=== PATIENT | male | born 1950 | race Caucasian/White ===

== ENCOUNTER 2019-11-04 15:56 | Inpatient (IN) | payer OTHER ==
[~2019-11-04] VITALS: Ht 182.9 cm; Wt 91.5 kg
[2019-11-04 17:16] LABS: Basophils # (auto) 0.1 10 ^3/uL (0-0.2); Basophils % (auto) 0.7 % (0.0-2.0); Eosinophils # (auto) 0.1 10 ^3/uL (0-0.8); Eosinophils % (auto) 0.6 % (0.0-7.0); Hematocrit 40.9 % (41.0-53.0); Hemoglobin 13.7 g/dL (13.5-17.5); Lymphocytes % (auto) 12.1 % (10.0-50.0); Mean Corpuscular Hemoglobin 27.6 pg (28.0-32.0); Mean Corpuscular Hgb Conc. 33.5 g/dL (32.0-36.0); Mean Corpuscular Volume 82.4 fL (80.0-100.0); Monocytes # (auto) 0.6 10 ^3/uL (0-1.3); Monocytes % (auto) 7.6 % (0.0-12.0); Neutrophils # (auto) 6.4 10 ^3/uL (1.6-8.6); Platelet Count (auto) 225 10^3/uL (140-450); Red Blood Cells 4.97 10^6/uL (4.5-5.90); Red Cell Distribution Width 13.6 % (11.8-14.3); White Blood Cell 8.2 10^3/uL (4.4-10.8)
[2019-11-04 17:33] LABS: Albumin 2.8 g/dL (3.4-5.0); Anion Gap 9 (5-15); Carbon Dioxide 23 mmol/L (21-32); Chloride 104 mmol/L (98-107); Glucose 103 mg/dL (74-106); Potassium 4.4 mmol/L (3.5-5.1); Sodium 136 mmol/L (136-145)
[2019-11-04 17:39] LABS: Alanine Aminotransferase 38 U/L (16-61); Alkaline Phosphatase 91 U/L (45-117); Aspartate Aminotransferase 23 U/L (15-37); BUN/Creatinine Ratio 31.5; Bilirubin, Total 0.5 mg/dL (0.2-1.0); GFR African American 29 mL/min; GFR Non-African American 24 mL/min; Total Protein 7.5 g/dL (6.4-8.2)
[2019-11-04 19:31] LABS: Blood Urea Nitrogen 88 mg/dL (7-18)
[2019-11-04 19:32] LABS: Magnesium 4.1 mg/dL (1.6-2.6)
[2019-11-05] MEDS ORDERED: SOD CHL 0.45% 1,000 ML IV ONE (01:15)
[2019-11-05] MEDS ORDERED: hydrALAZINE HCL 20 MG/ML VL IV PRN (01:15)
[2019-11-05] MEDS ORDERED: MORPHINE SULF INJ 2 MG/ML SYRINGE 1ML IV PRN (01:15)
[2019-11-05] MEDS ORDERED: NITROGLYCERIN 0.4 MG SL TAB SL PRN (01:15)
[2019-11-05 03:31] LABS: Urine Bacteria FEW /hpf (None Seen); Urine Blood Negative /uL (Negative); Urine Hyaline Cast MANY /lpf (0 - 2); Urine Mucus FEW (None Seen); Urine Specific Gravity 1.018 (1.001-1.035); Urine WBC 12 /hpf (0 - 3)
[2019-11-05] MEDS: hydrALAZINE HCL 25 MG TAB PO SCH ×3 (05:50→22:03)
[2019-11-05 07:04] LABS: INR 1.01 (0.9-1.15)
[2019-11-05 07:05] LABS: Basophils # (auto) 0 10 ^3/uL (0-0.2); Basophils % (auto) 0.6 % (0.0-2.0); Eosinophils # (auto) 0.1 10 ^3/uL (0-0.8); Eosinophils % (auto) 1.1 % (0.0-7.0); Hematocrit 39.6 % (41.0-53.0); Hemoglobin 13.5 g/dL (13.5-17.5); Lymphocytes % (auto) 14.3 % (10.0-50.0); Mean Corpuscular Hemoglobin 28.2 pg (28.0-32.0); Mean Corpuscular Volume 82.8 fL (80.0-100.0); Monocytes # (auto) 0.6 10 ^3/uL (0-1.3); Monocytes % (auto) 8.3 % (0.0-12.0); Neutrophils # (auto) 5.1 10 ^3/uL (1.6-8.6); Neutrophils % (auto) 75.7 % (37.0-80.0); Nucleated Red Blood Cells % 0.1 %; Platelet Count (auto) 201 10^3/uL (140-450); Red Blood Cells 4.78 10^6/uL (4.5-5.90); White Blood Cell 6.8 10^3/uL (4.4-10.8)
[2019-11-05 07:30] LABS: Potassium 4.6 mmol/L (3.5-5.1)
[2019-11-05 07:36] LABS: Albumin 2.5 g/dL (3.4-5.0); BUN/Creatinine Ratio 32.2; Bilirubin, Total 0.5 mg/dL (0.2-1.0); Total Protein 6.9 g/dL (6.4-8.2)
--- NOTE | 2019-11-05 08:00 | NUR ---
MS admit from ER RODOLFO LANCASTER admitted to MS after SBAR received. Patient oriented to SHELLEY HELLER RN primary RN, unit, room, bed, and unit policies regarding patient care and visiting hours. Patient weighed by bedscale and encouraged to call if they need something. All questions and concerns addressed, patient verbalized understanding.
[2019-11-05 09:00] VITALS: BP 158/71
[2019-11-05] MEDS ORDERED: BUMETANIDE 1 MG TAB PO SCH (10:00)
[2019-11-05] MEDS ORDERED: PANTOPRAZOLE 40 MG/10 ML VIAL INJ IV ONE (10:00)
[2019-11-05] MEDS ORDERED: HYDR50TA15 PO (10:09)
[2019-11-05] MEDS ORDERED: ATOR20TA50 PO (10:09)
[2019-11-05] MEDS ORDERED: LOSA-39 PO (10:09)
[2019-11-05] MEDS ORDERED: METO25TA93 PO (10:09)
[2019-11-05] MEDS ORDERED: NIFE1TAB30 PO (10:09)
[2019-11-05] MEDS: LOSARTAN POTASSIUM 50 MG TAB PO SCH (10:12)
[2019-11-05] MEDS: METOPROLOL TARTRATE 25 MG TAB PO SCH ×2 (10:13→22:04)
[2019-11-05] MEDS: NIFEdipine 10 MG CAP PO SCH ×2 (10:14→22:06)
[2019-11-05 10:50] VITALS: BP 158/71
[2019-11-05 13:00] VITALS: BP 120/61
[2019-11-05] MEDS: BUMETANIDE 1 MG TAB PO SCH ×2 (13:15→18:04)
[2019-11-05] MEDS: predniSONE 20 MG TAB PO SCH ×2 (13:17→22:02)
[2019-11-05 15:00] LABS: Albumin 2.4 g/dL (3.4-5.0); Calcium 7.8 mg/dL (8.5-10.1)
[2019-11-05 15:03] LABS: BUN/Creatinine Ratio 31.5; Bilirubin, Total 0.6 mg/dL (0.2-1.0); Total Protein 6.8 g/dL (6.4-8.2)
[2019-11-05 15:22] LABS: Protein, Urine 969.6 mg/dL (0.0-11.9)
[2019-11-05 17:00] VITALS: BP 137/75
--- NOTE | 2019-11-05 19:23 | NUR ---
Closing Shift Note Patient resting in bed. No distress noted. Patient resting in bed. Will endorse care to the shift foreman RN.
[2019-11-05 22:00] VITALS: BP 139/68
[2019-11-06 05:00] VITALS: BP 134/66
[2019-11-06] MEDS: hydrALAZINE HCL 25 MG TAB PO SCH ×3 (06:07→22:16)
[2019-11-06] MEDS: BUMETANIDE 1 MG TAB PO SCH ×2 (06:08→13:15)
--- NOTE | 2019-11-06 07:25 | NUR ---
End of Shift Note Endorsed care to dayshift RN. No s/s of distress or SOB, patient responsive to name and touch, no complaints at this time.
--- NOTE | 2019-11-06 07:30 | NUR ---
Opening Shift Note Assuming care of patient at this time. Patient is awake and alert. Patient denies pain. Patient shows no signs or symptoms of distress or shortness of breath. Bed is locked and lowered with side rails up x2. Instructed patient on the plan of care for today and to call for assistance as needed. Call light within reach.
[2019-11-06 09:01] VITALS: BP 148/69
[2019-11-06 09:20] LABS: Basophils # (auto) 0 10 ^3/uL (0-0.2); Basophils % (auto) 0.1 % (0.0-2.0); Eosinophils # (auto) 0 10 ^3/uL (0-0.8); Hematocrit 39.7 % (41.0-53.0); Hemoglobin 13.3 g/dL (13.5-17.5); Lymphocytes # (auto) 0.4 10 ^3/uL (0.4-5.4); Lymphocytes % (auto) 3.6 % (10.0-50.0); Mean Corpuscular Hemoglobin 27.7 pg (28.0-32.0); Mean Corpuscular Hgb Conc. 33.5 g/dL (32.0-36.0); Mean Corpuscular Volume 82.6 fL (80.0-100.0); Monocytes # (auto) 0.2 10 ^3/uL (0-1.3); Neutrophils # (auto) 10.3 10 ^3/uL (1.6-8.6); Neutrophils % (auto) 94.3 % (37.0-80.0); Platelet Count (auto) 243 10^3/uL (140-450); Red Blood Cells 4.81 10^6/uL (4.5-5.90); Red Cell Distribution Width 13.6 % (11.8-14.3)
[2019-11-06] MEDS: NIFEdipine 10 MG CAP PO SCH ×2 (09:26→22:15)
[2019-11-06] MEDS: predniSONE 20 MG TAB PO SCH ×2 (09:27→22:18)
[2019-11-06] MEDS: LOSARTAN POTASSIUM 50 MG TAB PO SCH (09:27)
[2019-11-06 09:41] LABS: Albumin 2.6 g/dL (3.4-5.0); Calcium 7.9 mg/dL (8.5-10.1); Potassium 4.9 mmol/L (3.5-5.1)
[2019-11-06 09:44] LABS: BUN/Creatinine Ratio 31.5; Bilirubin, Total 0.4 mg/dL (0.2-1.0); Total Protein 7.1 g/dL (6.4-8.2)
[2019-11-06] MEDS: METOPROLOL TARTRATE 25 MG TAB PO SCH ×2 (09:47→22:16)
--- NOTE | 2019-11-06 10:53 | NUR ---
Call to Dr. Woods Informed Dr. Woods of critical BUN results and elevated creatinine. Dr. Woods verbalized understanding. No new orders given at this time. Awaiting nephro recommendations.
[2019-11-06 13:00] VITALS: BP 116/55
[2019-11-06] MEDS: SODIUM CHLORIDE 0.9% 1,000 ML IV SCH ×2 (13:52→23:31)
--- NOTE | 2019-11-06 16:46 | NUR ---
Report given Report given to JAMES Eduardo. Patient currently in bed. Will endorse care to JAMES Eduardo.
--- NOTE | 2019-11-06 16:50 | NUR ---
Received patient from Rosey RAMIREZ. Patient awake, alert, oriented x 4 and verbally responsive. No respiratory distress noted. Skin is warm and dry to touch. Denied any pain at this time. Call light placed in reach, will continue to monitor.
[2019-11-06 17:06] VITALS: BP 135/68
--- NOTE | 2019-11-06 19:40 | NUR ---
RECEIVED PATIENT FROM DAY SHIFT RN. PATIENT RESTING IN BED. NO S/S OF DISTRESS NOTED. DENIED PAIN AT THIS TIME. POC INSTRUCTED AND ENCOURAGED PATIENT TO CALL FOR QUALITY ASSURANCE DIRECTOR IF NEEDED. BED IN LOWEST POSITION WITH SIDE RAILS UP X 2. CALL CROOKS WITHIN REACH. ALARM ON. CONTINUE TO MONITOR FOR CHANGES Q1H AND PRN.
--- NOTE | 2019-11-06 21:05 | NUR ---
2ND IV insertion ON LFA IV access obtained, via clean sterile technique by inserting [22] gauge catheter at [LFA] after [1] attempt(s). IV secured properly. No trauma to site. Patient tolerated well. NOTE: []
[2019-11-06 22:00] VITALS: BP 155/78
--- NOTE | 2019-11-07 01:27 | NUR ---
PATIENT SLEEPING. NO S/S OF DISTRESS NOTED. CONTINUE TO MONITOR.
[2019-11-07 05:00] VITALS: BP 133/72
--- NOTE | 2019-11-07 05:40 | NUR ---
PATIENT'S FAMILY CALLED. PASSWORD VERIFIED. UPDATED ON PATIENT'S CURRENT MEDICATIONS BUT TEST RESULTS, THEN PATIENT'S FAMILY CALLED PATIENT, PATIENT ANSWERED PHONE. CONTINUE TO MONITOR.
[2019-11-07] MEDS: hydrALAZINE HCL 25 MG TAB PO SCH ×3 (05:55→22:06)
[2019-11-07 07:45] LABS: Albumin 2.4 g/dL (3.4-5.0); BUN/Creatinine Ratio 28.6; Calcium 7.3 mg/dL (8.5-10.1); Potassium 5.2 mmol/L (3.5-5.1)
[2019-11-07 07:48] LABS: Bilirubin, Total 0.3 mg/dL (0.2-1.0); Total Protein 6.3 g/dL (6.4-8.2)
[2019-11-07 08:47] VITALS: BP 141/71
[2019-11-07] MEDS: SODIUM CHLORIDE 0.9% 1,000 ML IV SCH (10:44)
[2019-11-07] MEDS: BUMETANIDE 1 MG TAB PO SCH (10:44)
[2019-11-07] MEDS: predniSONE 20 MG TAB PO SCH ×2 (10:44→22:08)
[2019-11-07] MEDS: NIFEdipine 10 MG CAP PO SCH ×2 (10:45→22:06)
[2019-11-07] MEDS: METOPROLOL TARTRATE 25 MG TAB PO SCH ×2 (10:45→22:07)
--- NOTE | 2019-11-07 11:00 | NUR ---
Called and notified Dr. Woods of patients critical BUN 113. No orders received
--- NOTE | 2019-11-07 11:03 | NUR ---
Called and left message for Dr. Bernard to notify nephrology of patients critical BUN, awaiting call back
--- NOTE | 2019-11-07 11:45 | NUR ---
Dr. Woods at bedside to discuss plan of care with patient
[2019-11-07 12:57] VITALS: BP 134/71
--- NOTE | 2019-11-07 14:20 | NUR ---
DOLLY PUSHER DR. GRAMAJO AT BEDSIDE TO DISCUSS PLAN OF CARE WITH PATIENT. NEW ORDERS PLACED BY PHYSICIAN WILL CARRY OUT
[2019-11-07] MEDS: SODIUM BICARBONATE 50ML VIAL 50 ML in SOD CHL 0.45% 1,000 ML IV SCH (15:39)
[2019-11-07 16:34] VITALS: BP 129/70
[2019-11-07] MEDS: BUMETANIDE 2.5mg/10ml (0.25 mg/ml) INJ IV SCH (18:03)
--- NOTE | 2019-11-07 19:20 | NUR ---
Opening Shift Note Assumed care of patient, awake and alert. No S/S of distress/SOB or pain. Safety measures in place bed in lowest position, side rails up x2, and call light within reach. Instructed on POC and to call for assist PRN, will continue to monitor for changes Q1hr and PRN.
[2019-11-07 21:00] VITALS: BP 145/79
[2019-11-08] MEDS: SODIUM BICARBONATE 50ML VIAL 50 ML in SOD CHL 0.45% 1,000 ML IV SCH ×2 (03:16→12:40)
[2019-11-08 05:00] VITALS: BP 140/71
[2019-11-08 05:47] LABS: Basophils # (auto) 0 10 ^3/uL (0-0.2); Basophils % (auto) 0.1 % (0.0-2.0); Eosinophils # (auto) 0 10 ^3/uL (0-0.8); Hematocrit 32.9 % (41.0-53.0); Hemoglobin 11.3 g/dL (13.5-17.5); Lymphocytes # (auto) 0.4 10 ^3/uL (0.4-5.4); Lymphocytes % (auto) 3.6 % (10.0-50.0); Mean Corpuscular Hemoglobin 28.1 pg (28.0-32.0); Mean Corpuscular Hgb Conc. 34.2 g/dL (32.0-36.0); Mean Corpuscular Volume 82.2 fL (80.0-100.0); Monocytes # (auto) 0.2 10 ^3/uL (0-1.3); Monocytes % (auto) 1.8 % (0.0-12.0); Neutrophils # (auto) 9.8 10 ^3/uL (1.6-8.6); Neutrophils % (auto) 94.5 % (37.0-80.0); Nucleated Red Blood Cells % 0.1 %; Platelet Count (auto) 193 10^3/uL (140-450); Red Blood Cells 4.01 10^6/uL (4.5-5.90); Red Cell Distribution Width 13.9 % (11.8-14.3); White Blood Cell 10.3 10^3/uL (4.4-10.8)
[2019-11-08] MEDS: BUMETANIDE 2.5mg/10ml (0.25 mg/ml) INJ IV SCH ×2 (05:59→17:53)
[2019-11-08] MEDS: hydrALAZINE HCL 25 MG TAB PO SCH ×3 (05:59→22:18)
[2019-11-08 06:04] LABS: Potassium 5.3 mmol/L (3.5-5.1)
[2019-11-08 06:19] LABS: Albumin 2.2 g/dL (3.4-5.0); BUN/Creatinine Ratio 32.1; Bilirubin, Total 0.2 mg/dL (0.2-1.0); Calcium 6.7 mg/dL (8.5-10.1); Total Protein 5.6 g/dL (6.4-8.2)
--- NOTE | 2019-11-08 06:39 | NUR ---
Chemistry called with a critical BUN 135, contacted Dr. Treviño with [facility]. No new orders. Will continue to monitor.
[2019-11-08 09:00] VITALS: BP 138/62
[2019-11-08] MEDS: predniSONE 20 MG TAB PO SCH ×2 (09:45→22:17)
[2019-11-08] MEDS: METOPROLOL TARTRATE 25 MG TAB PO SCH ×2 (09:45→22:18)
[2019-11-08] MEDS: NIFEdipine 10 MG CAP PO SCH (09:45)
[2019-11-08] MEDS ORDERED: NIFEdipine 10 MG CAP PO SCH (11:30)
--- NOTE | 2019-11-08 11:51 | NUR ---
Est energy needs kcal (20-23 kcal/kg BW 99.4kg) Est protein needs 59-69g (0.6-0.7g/kg BW 99.4kg r/t LIGIA no HD) will reassess prn Consider Renal Specific diet 70g protein until LIGIA improves or HD initiated Addendum: 11/08/19 at [address] Amended: Links added.
[2019-11-08] MEDS: CALCIUM ACETATE 667 MG CAP PO SCH ×2 (12:41→17:54)
[2019-11-08 13:00] VITALS: BP 151/61
[2019-11-08] MEDS: SODIUM ZIRCONIUM CYCL 10 GM PAK PO SCH ×2 (13:49→20:33)
[2019-11-08 17:00] VITALS: BP 141/69
[2019-11-08 21:00] VITALS: BP 142/74
[2019-11-09] MEDS: SODIUM BICARBONATE 50ML VIAL 50 ML in SOD CHL 0.45% 1,000 ML IV SCH (02:12)
[2019-11-09 04:30] VITALS: BP 157/91
[2019-11-09] MEDS: hydrALAZINE HCL 25 MG TAB PO SCH ×3 (05:00→22:14)
--- NOTE | 2019-11-09 05:01 | NUR ---
HYDRALAZINE HELD PER MD ORDERS TO HOLD BEFORE DIALYSIS MWF.
[2019-11-09] MEDS: SODIUM ZIRCONIUM CYCL 10 GM PAK PO SCH ×3 (06:00→22:00)
[2019-11-09] MEDS: BUMETANIDE 2.5mg/10ml (0.25 mg/ml) INJ IV SCH ×3 (06:08→17:59)
--- NOTE | 2019-11-09 06:34 | NUR ---
DAUGHTER MANAN CALLED FOR PATIENT; TRANSFERRED CALL TO PATIENT ROOM AFTER PASSWORD CONFIRMED.
[2019-11-09 06:40] LABS: Basophils # (auto) 0 10 ^3/uL (0-0.2); Eosinophils # (auto) 0 10 ^3/uL (0-0.8); Hemoglobin 11.3 g/dL (13.5-17.5); Lymphocytes # (auto) 0.6 10 ^3/uL (0.4-5.4); Lymphocytes % (auto) 6.5 % (10.0-50.0); Mean Corpuscular Hgb Conc. 34.2 g/dL (32.0-36.0); Mean Corpuscular Volume 81.7 fL (80.0-100.0); Monocytes # (auto) 0.5 10 ^3/uL (0-1.3); Monocytes % (auto) 5.9 % (0.0-12.0); Neutrophils % (auto) 87.6 % (37.0-80.0); Nucleated Red Blood Cells % 0.2 %; Platelet Count (auto) 200 10^3/uL (140-450); Red Blood Cells 4.04 10^6/uL (4.5-5.90); White Blood Cell 9.1 10^3/uL (4.4-10.8)
--- NOTE | 2019-11-09 06:48 | NUR ---
SPOKE TO RADIOLOGY JHON. JHON STATED PATIENT CANNOT BE SEEN FOR TUNNEL CATH PLACEMENT UNTIL DOCTOR ANNA HAS SEEN PATIENT AND PLACES ORDER.
[2019-11-09 06:55] LABS: Magnesium 3.7 mg/dL (1.6-2.6); Potassium 4.4 mmol/L (3.5-5.1)
[2019-11-09] MEDS ORDERED: SODIUM CHL 0.9% 1000 ML BAG XX ONE (07:00)
--- NOTE | 2019-11-09 07:30 | NUR ---
Opening Shift Note Assumed care of patient, who is alert and oriented x4. Respirations are even and unlabored. No S/S of distress/SOB or pain. Bed is low, locked with 2x side rails up. Call light is within reach. Instructed on POC and to call for assist PRN, will continue to monitor for changes Q1hr and PRN.
[2019-11-09] MEDS: CALCIUM ACETATE 667 MG CAP PO SCH ×4 (08:00→17:18)
[2019-11-09 08:50] LABS: INR 1.05 (0.9-1.15)
[2019-11-09 09:16] VITALS: BP 149/74
[2019-11-09] MEDS: METOPROLOL TARTRATE 25 MG TAB PO SCH (10:00)
[2019-11-09] MEDS ORDERED: fentaNYL CITRATE 100 MCG/2 ML VL ONE (10:40)
[2019-11-09] MEDS ORDERED: LIDOCAINE 2%HCL (LOCAL ANESTH.) INJ 20ML MDV ONE ×2 (10:40→11:00)
[2019-11-09] MEDS ORDERED: MIDAZOLAM HCL 1MG/1ML-2 ML VIAL ONE (10:40)
[2019-11-09] MEDS ORDERED: HEPARIN SODIUM (PORCINE) 5000 UNITS/ML 1ML VIAL ONE (10:41)
--- NOTE | 2019-11-09 10:42 | NUR ---
Patient off unit Patient taken to circus laborer for insertion of Tunneled IJ catheter for dialysis.
[2019-11-09] MEDS ORDERED: NIFEdipine 10 MG CAP PO SCH (11:30)
[2019-11-09 12:43] LABS: Hepatitis A Ab IgM Negative; Hepatitis B Core IgM Negative; Hepatitis B Surface Antigen Negative (Negative); Hepatitis C Antibody Negative (Negative)
--- NOTE | 2019-11-09 12:45 | NUR ---
Patient back on unit Patient alert and oriented x4. No s/s of distress noted or stated. Patient has a tunneled IJ catheter to right upper chest. Dressing is clean and dry. Per prosthetic lab technician okay to use access site for dialysis today. Will relay message to dialysis nurse. Bed is low, locked with 2x side rails up. Call light is within reach. Will continue to monitor.
--- NOTE | 2019-11-09 15:59 | NUR ---
1600 11/09/19 Faxed to [employer] the following: face sheet, current progress notes, and labs.
--- NOTE | 2019-11-09 16:50 | NUR ---
Dialysis output 3L out
[2019-11-09 17:01] VITALS: BP 170/82
[2019-11-09] MEDS: B-COMPLEX W/ C & FOLIC ACID(NEPHROVITE TAB) PO SCH (17:04)
[2019-11-09] MEDS: predniSONE 20 MG TAB PO SCH ×2 (17:04→22:14)
--- NOTE | 2019-11-09 18:15 | NUR ---
Paged Dr. Garza Waiting for call back.
--- NOTE | 2019-11-09 18:35 | NUR ---
Received call back Spoke with Dr. Garza regarding patients fluctuations in blood pressure. Patient was c/o dizziness and is expressing concerns regarding drastic change in blood pressure. 1704: BP: 170/82 HR:53 1750: BP:111/55 HR:70 RECHECK:1755 105/50 HR:81 1825:146/68 HR 75. New orders received to set parameters for blood pressure medications. Per MD Garza he will come and speak with patient tomorrow regarding blood pressure.
--- NOTE | 2019-11-09 19:10 | NUR ---
OPENING NOTE- NOC SHIFT PATIENT IS ALERT AND ORIENTED X4, PATIENT IS SITTING UP IN BED, BED IS LOCKED AT LOWEST POSITION, BED RAILS UP X2 AND HEAD OF BED IS UP >30 DEGREES. DISCUSSED POC WITH PATIENT AND INSTRUCTED PATIENT TO CALL PRN; PATIENT VERBALIZED UNDERSTANDING. WILL CONTINUE TO MONITOR Q1H AND PRN. BEDSIDE TABLE WITHIN REACH, CALL LIGHT WITHIN REACH.
[2019-11-09 22:00] VITALS: BP 140/71
[2019-11-09] MEDS ORDERED: METOPROLOL TARTRATE 25 MG TAB PO SCH (22:00)
[2019-11-10 05:00] VITALS: BP 148/72
[2019-11-10] MEDS: SODIUM ZIRCONIUM CYCL 10 GM PAK PO SCH (06:00)
[2019-11-10 06:42] LABS: Basophils # (auto) 0 10 ^3/uL (0-0.2); Eosinophils # (auto) 0 10 ^3/uL (0-0.8); Hematocrit 36.3 % (41.0-53.0); Hemoglobin 12.3 g/dL (13.5-17.5); Lymphocytes # (auto) 0.3 10 ^3/uL (0.4-5.4); Lymphocytes % (auto) 4.1 % (10.0-50.0); Mean Corpuscular Hemoglobin 27.5 pg (28.0-32.0); Mean Corpuscular Hgb Conc. 33.8 g/dL (32.0-36.0); Mean Corpuscular Volume 81.3 fL (80.0-100.0); Monocytes # (auto) 0.2 10 ^3/uL (0-1.3); Monocytes % (auto) 3.3 % (0.0-12.0); Neutrophils # (auto) 6.7 10 ^3/uL (1.6-8.6); Neutrophils % (auto) 92.6 % (37.0-80.0); Nucleated Red Blood Cells % 0.1 %; Platelet Count (auto) 191 10^3/uL (140-450); Red Blood Cells 4.46 10^6/uL (4.5-5.90); Red Cell Distribution Width 13.8 % (11.8-14.3); White Blood Cell 7.2 10^3/uL (4.4-10.8)
[2019-11-10] MEDS: BUMETANIDE 2.5mg/10ml (0.25 mg/ml) INJ IV SCH (06:48)
[2019-11-10] MEDS: hydrALAZINE HCL 25 MG TAB PO SCH ×3 (06:49→22:50)
[2019-11-10 07:04] LABS: Potassium 4.3 mmol/L (3.5-5.1)
[2019-11-10 07:08] LABS: BUN/Creatinine Ratio 29.7; Calcium 7.6 mg/dL (8.5-10.1); Magnesium 3.1 mg/dL (1.6-2.6)
[2019-11-10] MEDS: CALCIUM ACETATE 667 MG CAP PO SCH ×3 (07:59→17:41)
[2019-11-10] MEDS ORDERED: CALC667C5 PO (08:12)
[2019-11-10] MEDS ORDERED: PRED20TA2 PO (08:12)
[2019-11-10] MEDS ORDERED: PANT40TA2 PO (08:12)
[2019-11-10] MEDS ORDERED: NEPVITT PO (08:12)
[2019-11-10 08:46] VITALS: BP 159/79
--- NOTE | 2019-11-10 09:18 | NUR ---
Dr. Garza rounding Dr. Garza at bedside updating patient on POC. Will continue to monitor.
--- NOTE | 2019-11-10 09:25 | NUR ---
Discharge Spoke with Dr. Garza regarding this patient's discharge order. This nurse informed MD that [facility] will be setting patient up with dialysis/chair time. Per Greg this nurse is to hold discharge until he makes sure that patient is set up with dialysis chair time. Will continue to monitor.
[2019-11-10] MEDS: predniSONE 20 MG TAB PO SCH ×2 (09:47→22:51)
[2019-11-10] MEDS: NIFEdipine ER 30 MG TAB PO SCH (09:48)
[2019-11-10] MEDS: B-COMPLEX W/ C & FOLIC ACID(NEPHROVITE TAB) PO SCH (09:48)
[2019-11-10] MEDS ORDERED: NIFEdipine 10 MG CAP PO SCH (10:00)
[2019-11-10] MEDS: BUMETANIDE 1 MG TAB PO SCH (10:07)
[2019-11-10 12:52] VITALS: BP 150/75
--- NOTE | 2019-11-10 17:10 | NUR ---
Paging Dr. Garza Paging Dr. Garza regarding patient's chair time/discharge.
[2019-11-10 17:16] VITALS: BP 160/79
[2019-11-10 17:35] VITALS: BP 160/75
[2019-11-10] MEDS ORDERED: FUROSEMIDE 20 MG TAB PO ONE (18:00)
--- NOTE | 2019-11-10 18:27 | NUR ---
Received call back Spoke with Dr. Garza regarding patient's chair time. This nurse informed MD that [facility] scheduled patient's dialysis for first dialysis is at 2:30pm. MD is also aware of increasing blood pressure (see vital signs). New orders for Lasix placed and carried out. Per Dr. Garza patient is to have dialysis tomorrow morning and can be discharged after. Will continue to monitor.
--- NOTE | 2019-11-10 18:37 | NUR ---
Chair Time Spoke with Sumi from [facility] and she stated that patient will be doing dialysis with [facility] in [place]. Days: // Patient's first dialysis is this 11/12/19 at 2:30pm for initial evaluation. [phone]
--- NOTE | 2019-11-10 19:05 | NUR ---
OPENIN NOTE- NOC SHIFT RECEIVED REPORT FROM DAY SHIFT RN. PATIENT IS ALERT AND ORIENTED X4, ANSWERS IN COMPLETE SENTENCES AND MAKES APPROPRIATE EYE CONTACT. PATIENT IS IN BED, BED IS LOCKED AT LOWEST POSITION, BED RAIL UP X2 AND HEAD OF BED IS UP >30 DEGREES. BEDSIDE TABLE WITHIN REACH, CALL LIGHT WITHIN REACH. DISCUSSED POC WITH PATIENT AND INSTRUCTED PATIENT TO CALL PRN; PATIENT VERBALIZED UNDERSTANDING. CURRENT BP 145/77. NO S/SX OF DISTRESS, SOB OR PAIN.
[2019-11-10 22:00] VITALS: BP 140/76
[2019-11-11 05:00] VITALS: BP 145/71
[2019-11-11] MEDS: hydrALAZINE HCL 25 MG TAB PO SCH ×2 (05:30→15:09)
--- NOTE | 2019-11-11 05:31 | NUR ---
HYDRALAZINE 0600 DOSE HELD PER MD ORDERS TO HOLD MED PRIOR TO HD ON MWF.
[2019-11-11 05:58] LABS: Basophils # (auto) 0 10 ^3/uL (0-0.2); Basophils % (auto) 0.1 % (0.0-2.0); Eosinophils # (auto) 0 10 ^3/uL (0-0.8); Hematocrit 37.6 % (41.0-53.0); Hemoglobin 12.9 g/dL (13.5-17.5); Lymphocytes # (auto) 0.6 10 ^3/uL (0.4-5.4); Lymphocytes % (auto) 5.9 % (10.0-50.0); Mean Corpuscular Hgb Conc. 34.4 g/dL (32.0-36.0); Mean Corpuscular Volume 81.4 fL (80.0-100.0); Monocytes # (auto) 0.5 10 ^3/uL (0-1.3); Monocytes % (auto) 4.4 % (0.0-12.0); Neutrophils # (auto) 9.2 10 ^3/uL (1.6-8.6); Neutrophils % (auto) 89.6 % (37.0-80.0); Platelet Count (auto) 210 10^3/uL (140-450); Red Blood Cells 4.62 10^6/uL (4.5-5.90); Red Cell Distribution Width 13.5 % (11.8-14.3); White Blood Cell 10.3 10^3/uL (4.4-10.8)
[2019-11-11 06:27] LABS: BUN/Creatinine Ratio 34.7; Calcium 7.9 mg/dL (8.5-10.1); Magnesium 3.4 mg/dL (1.6-2.6); Potassium 4.3 mmol/L (3.5-5.1)
[2019-11-11 06:43] LABS: % Iron Saturation 65.7 % (20-55)
[2019-11-11] MEDS ORDERED: SODIUM CHL 0.9% 1000 ML BAG XX ONE (07:00)
[2019-11-11 08:00] VITALS: BP 145/71
--- NOTE | 2019-11-11 08:00 | NUR ---
ASSESSMENT NOTE PT IS ALERT ORIENTED X4, SITTING UP IN BED, NO DISTRESS NOTED, ABLE TO SELF REPOSITION AND VERBALIS HIS DEMANDS, DIALYSIS CATHETER NOTED AT RT UPPER CHEST INTACT, NO DISTRESS NOTED, PAIN 0/10 AT THIS TIME
[2019-11-11] MEDS: CALCIUM ACETATE 667 MG CAP PO SCH ×2 (08:44→12:35)
--- NOTE | 2019-11-11 08:45 | NUR ---
DR BAEZ / BIOINFORMATICS SCIENTIST AT BED SIDE, INFORMING PT DIALYSIS WILL BE IN THE NEXT 2 HOURS, HOLD BP MEDS
[2019-11-11 09:00] VITALS: BP 160/77
--- NOTE | 2019-11-11 10:25 | NUR ---
DIALYSIS NURSE AT BED SIDE PREPARING PATIENT
--- NOTE | 2019-11-11 12:26 | NUR ---
Nutrition Follow-up Wt.: 91.5 kg Pt`s sleeping with no family by bedside. pt is now on on HD and to have HD today. pt is currently on renal std diet with adequate Po of 75% x 4 per RN doc Est energy needs BW 91 [id number] kcal (25-27 kcal/kg BW), Est protein needs 109-118g (1.2-1.3g/kg BW) reassessed as pt now on HD Labs: BUN 90 H, CREAT 2.59 H, GLU 140 H, ALB 2.2 L, CA 7.9 L. GI: pt had 2 BM today per RN doc Skin: BS 18 mod risk Refer to WC notes for details PES: Altered nutrition related labs aeb elevated RFTs r/t current medical condition Recommendations: 1) Consider prostat 1packet bid as alb is low nd pt on HD 2) Refer pt to renal OPD on. dc 3) Continue current plan of care. F/u mod 3-5 days
--- NOTE | 2019-11-11 12:44 | NUR ---
PT CONTINUE TOERATING DIALYSIS WELL
[2019-11-11 13:00] VITALS: BP 164/78
--- NOTE | 2019-11-11 14:15 | NUR ---
DIALYSIS IS DONE, PT TOLERATED WELL WITH 3 L OUTPUT
--- NOTE | 2019-11-11 15:00 | NUR ---
ANXIETY PT IS CONCERN ABOUT THE DISCHARGE HOME HAVE QUESTIONS REGARDING THE NEW RX AND BLOOD PRESSURE MEDICATIONS, EXPLAIN TO PT THAT I WILL SET HIS DISCHARGE PAPERS AND GO WITH HIM REGARDING WHICH MEDICATIONS TO RESUME AND WHAT NEW RX WILL NEED TO [facility] IN HIS PHARMACY AND TO KEEP THE DIALYSIS APPOINTMENT IN [facility], PT VERBALIS UNDERSTANDING, PATIENT'S IS LISTENING FROM PATIENT'S PHONE
[2019-11-11] MEDS: predniSONE 20 MG TAB PO SCH (15:08)
[2019-11-11] MEDS: BUMETANIDE 1 MG TAB PO SCH (15:09)
[2019-11-11] MEDS: B-COMPLEX W/ C & FOLIC ACID(NEPHROVITE TAB) PO SCH (15:09)
[2019-11-11] MEDS: NIFEdipine ER 30 MG TAB PO SCH (15:10)
[2019-11-11 15:38] VITALS: BP 184/85
--- NOTE | 2019-11-11 15:56 | NUR ---
CALLED [facility] TO [facility]LLOW UP INFORM ME THAT THEY ARE OUT OF [facility] AND IT NEED TO BE CALLED IN IN A DIFFERENT PHARMACY, [facility] HAS A CO PAYMENT, PREDNISONE AND PROTONIX IS COVERED, PT MADE AWARE, VERBALIS UNDERSTANDING, GAVE ME HIS OWN [facility]
--- NOTE | 2019-11-11 16:04 | NUR ---
CALLED IN RX TO [facility] SPOKE WITH SOPHIA THE PHARMACIST, WITH [facility]
[2019-11-11 16:26] VITALS: BP 142/82
--- NOTE | 2019-11-11 16:27 | NUR ---
ALL DISCHARGE INSTRUCTION GIVEN TO PT, ANSWER ALL PATIENT'S CONCERNS, PT VERBALIS UNDERSTANDING PT CALLED HIS TO PICK HIM UP, REMINDED TO JOINT CUTTER MACHINE HIS NEW RX FROM [facility] AND [facility], VERBALIS UNDERSTANDING
--- NOTE | 2019-11-11 16:44 | NUR ---
Discharge instructions given as ordered. Encourage to follow up with PMD as instructed. All questions and concerns addressed. Patient verbalized understanding. Medication reconciliation form completed and copy given to patient. . IV removed with catheter intact, pressure dressing applied. Patient ambulated with all personal belongings, accompanied by staff to main lobby where his is waiting for him. No distress noted at time of departure.
--- NOTE | 2019-11-11 17:30 | NUR ---
PATIENT CALLED REQUESTING THE DIALYSIS CENTER ADDRESS, ADDRESS ALONG WITH THE PHONE NUMBER GIVEN TO PT, ENCOURAGE PT TO CALL TOMORROW AND VERIFY HIS APPOINTMENT [phone] [id number]
--- NOTE | 2019-11-11 17:35 | NUR ---
PAGE DR BAEZ CALLED BACK, SAID PT WILL FOLLOW UP TOMORROW AT 1430 AND RESUME HOME MEDS ALONG WITH THE NEW PRESCRIPTION, NINA PT, VERBALIS UNDERSTANDING
== END 2019-11-11 16:45 | disposition home health service (06) | DRG 674 ==
LOC: ER 15:56 → OVERFLOW 15:57 → CENTRAL 11-05 07:50
PROVIDERS: ADMIT Internal Medicine; ATTEND Internal Medicine
PROC: 0JH63XZ Insertion of Tunneled Vascular Access Device into Chest Subcutaneous Tissue and Fascia, Percutaneous Approach (ICD-10-PCS; principal; 2019-11-09)
PROC: 02H633Z Insertion of Infusion Device into Right Atrium, Percutaneous Approach (ICD-10-PCS; 2019-11-09)
PROC: B5181ZA Fluoroscopy of Superior Vena Cava using Low Osmolar Contrast, Guidance (ICD-10-PCS; 2019-11-09)
PROC: 5A1D70Z Performance of Urinary Filtration, Intermittent, Less than 6 Hours Per Day (ICD-10-PCS; 2019-11-09)
PROC: 5A1D70Z Performance of Urinary Filtration, Intermittent, Less than 6 Hours Per Day (ICD-10-PCS; 2019-11-11)
DX: N17.0 Acute kidney failure with tubular necrosis (principal); E87.2 Acidosis; I12.0 Hypertensive chronic kidney disease with stage 5 chronic kidney disease or end stage renal disease; N25.81 Secondary hyperparathyroidism of renal origin; N18.5 Chronic kidney disease, stage 5; I16.0 Hypertensive urgency; E87.70 Fluid overload, unspecified; K21.9 Gastro-esophageal reflux disease without esophagitis; E78.5 Hyperlipidemia, unspecified; E83.39 Other disorders of phosphorus metabolism; Z87.441 Personal history of nephrotic syndrome; Z99.2 Dependence on renal dialysis; Z03.818 Encounter for observation for suspected exposure to other biological agents ruled out
CPT/HCPCS: 36415; 71046; 76775; 76942; 80048; 80053; 80074; 81001; 82306; 82570; 82728; 83540; 83550; 83735; 83880; 83970; 84100; 84156; 84300; 84484; 85025; 85379; 85610; 86703; 86803; 87081; 87340; 87493; 90935; 93005; 93970; 93975; 96360; 99152; 99153; C9113; G0378; J2250